=== PATIENT | male | born 1980 | race Two or more races ===

== ENCOUNTER 2023-07-17 06:41 | Emergency (ER) | payer SELFPAY ==
[~2023-07-17] VITALS: Ht 172.7 cm; Wt 72.6 kg
[2023-07-17] MEDS ORDERED: KETOROLAC TROMETHAMINE INJ 30 MG/ML VIAL IM ONE (07:00)
[2023-07-17] MEDS ORDERED: KETOROLAC TROMETHAMINE 15 MG/ML VIAL ONE (07:01)
[2023-07-17] MEDS ORDERED: IBUP-1955 PO (07:20)
[2023-07-17] MEDS ORDERED: HYDR-4303 PO (07:20)
[2023-07-17] MEDS ORDERED: NALO4SPR BNOSTRILS (07:20)
[2023-07-17] MEDS ORDERED: HYDR-4275 PO (08:02)
[2023-07-17 08:11] VITALS: BP 126/81; TEMP 97.7; O2SAT 100
== END 2023-07-17 08:12 | disposition home or self-care (01) ==
LOC: ER 06:46
DX: S52.572A Other intraarticular fracture of lower end of left radius, initial encounter for closed fracture (principal); S09.8XXA Other specified injuries of head, initial encounter; W18.39XA Other fall on same level, initial encounter; Y93.89 Activity, other specified; Y92.89 Other specified places as the place of occurrence of the external cause; Y99.8 Other external cause status
CPT/HCPCS: 99284; 29125; 73090; 73110; 96372; J1885

== ENCOUNTER 2023-07-18 14:20 | Emergency (ER) | payer SELFPAY ==
[~2023-07-18 14:20] MED LIST: HYDR-4275 PO; IBUP-1955 PO; NALO4SPR BNOSTRILS
== END 2023-07-18 14:44 | disposition left against medical advice (07) ==
LOC: ER 14:38
DX: Z53.21 Procedure and treatment not carried out due to patient leaving prior to being seen by health care provider (principal)